=== PATIENT | female | born 1945 | race Caucasian/White ===

== ENCOUNTER 2023-10-07 12:10 | Outpatient (CLI) | payer MEDICARE, SELFPAY ==
--- OUTSIDE RECORDS SUMMARY | 2023-10-07 12:14 | XMS_ITS | Patient Health Record ---
Author Name Unknown Organization [facility] Address [address] [place], [place] [id number] Care Team Providers Care Clerical Adjudicator Name Role Phone Corazon Huffman Primary Care Provider [phone] ALLERGIES Allergen (clinical drug ingredient) Drug/Non Drug Allergy documented on EMR Reaction Allergy Type Onset Date Status Gluten Gluten (uncoded) Unknown Allergy Act lorene erythromycin Erythromycin Unknown Drug Allergy A ctive Keflex Unknown Drug Allergy Active REASON FOR REFERRAL No Information MEDICATIONS Medication SIG (Take, Route, Frequency, Duration) Notes Start Date End Date Status Vitamin D3 Ultra Strength 5000 UNIT 1 capsule Orally Once a day Active Levothyroxine 100 mcg once a day Active SOTTOPELLE Active Alendronate Sodium 70 MG 1 tablet Orally for 30 day(s) once weekly Active Aspirin Adult Low Dose 81 MG 1 tablet Orally Once a day prn Active Calcium 500 MG 1 tablet with meals Orally Twice a day for 30 day(s) Active Folic Acid 1 MG 1 tablet Orally Once a day Active SOCIAL HISTORY Tobacco Use: Social History Observation Description Date Details (start date - stop date) Former Smoker NA - NA Sex Assigned At : Social History Observation Description Sex Assigned At Unknown Tobacco Use/Smoking Question Answer Notes Are you a former smoker How long has it been since you last smoked? 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) Active confirmed 676086637 Problem Acquired hypothyroidism (E03.9) Active confirmed 883050810 Problem Hypothyroidism, unspecified type (E03.9) Active confirmed 76081830 Problem Anal itch (L29.0) Active confirmed Anal itch (70783996) Problem Post-menopausal atrophic vaginitis (N95.2) Active confirmed Atrophic vaginitis (16040525) Problem Postmenopausal hormone replacement therapy (Z79.890) Active confirmed Postmenopa usal hormone replacement therapy (569450118) Problem Fecal soiling due to fecal incontinence (R15.9) Active confirmed Incontinence of feces (88969384) Problem Climacteric syndrome (N95.1) Active confirmed Menopause (131222353) PLAN OF TREATMENT Pending Test Test Name Order Date ESTRADIOL 02/07/2021 FSH 02/07/2021 TESTOSTERONE, TOTAL, LC/MS/MS 02/07/2021 TESTOSTERONE, FREE, LC/MS/MS 06/22/2018 MAMMOGRAM, SCREENING 07/21/2019 Insurance Providers Payer Name Payer Address Payer Phone Subscriber Number Group Number Insured Name Patient Relationship to Insured Coverage Start Date Coverage End Date [employer] 2021 (Ins. Bill) [address] [place], [place] [id number] PRAVEEN CARRION Self - patient is the insured Medicare (Ins. Bill) [address] [place], [place] [id number] BLESSINGPRAVEEN GLOVER Self - patient is the insured MEDICAL (GENERAL) HISTORY Medical History History ICD Code Arthritis Depression/Anxiety- off meds now Thyroid Problem- off meds now hyperlipidemia hormone replacement therapy Celiac disease- gluten free diet Surgical History Surgery Date(Month/Year) Tonsillectomy 195 Hysterectomy 1998 Bladder Sling- mini arc 1998 MOHS with plastic surgery repair on Nose for Basel Cell 2010 urethral bulking 2012 SPARC midurethral sling 2014 Cataract 2017 Cataract 2018 Mid Urethral sling 03/23/2019
[2023-10-07] MEDS: TETRACAINE 0.5% OPHTH 1 DROP EYE-LEFT ×3 (12:40→12:53)
[2023-10-07] MEDS: BRIMONIDINE TARTRATE 0.2% OPHTH 1 DROP EYE-LEFT ×2 (12:41→13:00)
[2023-10-07 12:48] VITALS: BP 144/75; PULSE 80; RESP 16; O2SAT 98
--- NOTE | 2023-10-07 13:21 | W.PM.OPTPROC ---
Procedure Note Date of procedure: 10/07/23 Will [facility] bill your pro fee for this procedure?: Yes Procedure Description: SURGEON: Shawanda Carter MD PREOPERATIVE DIAGNOSIS: Posterior capsular opacity, left eye POSTOPERATIVE DIAGNOSIS: Posterior capsular opacity, left eye PROCEDURE: YAG laser capsulotomy, left eye ANESTHESIA: Topical. ESTIMATED BLOOD LOSS: None PATHOLOGY SPECIMEN: None COMPLICATIONS: None INDICATIONS: See consult note for details. The risks, benefits and alternatives of the procedure were explained to the patient, who elected to proceed and signed informed consent to do so. PROCEDURE: The patient was brought to the pre-holding area where the left eye was identified as the operative eye. I placed my initials above this eye. The patient received 2 sets of 1 drop of 0.5% tetracaine and 1 drop of 1% tropicamide. They also received 1 drop of 0.2% brimonidine. They received 1 drop of 0.5% tetracaine immediately prior to bringing them back for the procedure. The patient was then brought to the procedure room where the left eye was again identified as the operative eye. A YAG Obdulio capsulotomy lens was placed on the eye. The laser was administered using a total number of 20 shots with an energy of 2.4 mJ per shot for a total energy of 48 mJ. The patient tolerated the procedure well. DISPOSITION: The patient was taken back to the pre-holding area and given 1 drop of 0.2% brimonidine in the left eye. They were discharged to home in stable condition. The patient was instructed to call me or go to the emergency department with any sudden change, including dramatic loss of vision, severe pain in the eye or eyebrow region, nausea, or vomiting. The patient was instructed to use the 0.2% brimonidine 1 drop 2 times a day in the left eye for 1 week. The patient will follow up in the clinic in 1-2 weeks
== END 2023-10-07 13:01 | disposition home or self-care (01) ==
LOC: EYE PRC 12:12
PROVIDERS: PCP Physician Assistant Medical; Visit Provider Ophthalmology
DX: H26.9 Unspecified cataract (principal)
CPT/HCPCS: 66821; A9270